=== PATIENT | female | born 1965 | race Caucasian/White ===

== ENCOUNTER 2016-04-29 20:31 | Emergency (ER) | payer MEDICAID, OTHER ==
[~2016-04-29] VITALS: Wt 100.0 kg
[~2016-04-29 20:31] MED LIST: ALBU8.5H3 INH; AZIT250T94 PO; HYDR-906 PO; IBUP-1542 PO; NAPR-260 PO; PRED20TA PO
[2016-04-29] MEDS ORDERED: AZIT250T94 PO (23:04)
[2016-04-29] MEDS ORDERED: CETI10CA PO (23:04)
[2016-04-29] MEDS ORDERED: BENZ100C70 PO (23:04)
--- NOTE | 2016-04-29 23:10 | ERD ---
ER Documentation Chief Complaint Date/Time DATE: 04/29/16 TIME: 23:05 Chief Complaint pt. states bronchitis and sore throat HPI Patient is a 50-year-old female who presents to the emergency department with a cough 1 week and a sore throat. Patient states her cough is productive in nature with yellow phlegm production. Patient states that her cough is worse at night. Patient denies taking any medication. Patient also states that her throat hurts. Patient denies any drooling, trismus or hyperextension of her neck. Patient denies any fevers however she does report some chills. Patient reports frequent clear rhinorrhea. Patient denies any body aches, ear pain, abdominal pain, nausea, vomiting. Patient denies any chest pain, shortness breath, arm pain, jaw pain or diaphoresis. She denies receiving the flu vaccine this year. 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 ROS All systems reviewed and are negative except as per history of present illness. Medications Home Meds Active Scripts Azithromycin* (Zithromax*) 250 Mg Tablet, 250 MG PO .ZPACK DIRECTED, #6 TAB TAKE 500 MG (2 TABS) THE FIRST DAY THEN 250 MG (1 TAB) DAYS 2-5 Prov:SANTA ADLER PA-C 04/29/16 Benzonatate* (Tessalon Perle*) 100 Mg Capsule, 100 MG PO Q8H Y for COUGH, #20 CAP Prov:SANTA ADLER PA-C 04/29/16 Cetirizine Hcl* (Zyrtec*) 10 Mg Capsule, 10 MG PO DAILY, #20 TAB.CHEW Prov:SANTA ADLER PA-C 04/29/16 Hydrocodone/Acetaminophen ([place] 5-325 Tablet) 1 Each Tablet, 1 TAB PO Q6H Y for SEVERE PAIN LEVEL 7-10, #20 TAB Prov:SUNG BECERRA NP 01/29/16 Ibuprofen* (Motrin*) 600 Mg Tab, 600 MG PO Q6, #30 TAB Prov:YAMILET WEEMS PA-C 01/26/16 Naproxen* (Naprosyn*) 500 Mg Tablet, 500 MG PO BID Y for PAIN AND/OR INFLAMMATION, #30 TAB Prov:TAD RODRIGUEZ PA-C 01/25/16 Prednisone* (Prednisone*) 20 Mg Tab, 60 MG PO DAILY for 5 Days, TAB Prov:DEEPTHI MARQUEZJason BHATIA 01/17/16 Albuterol Sulfate* (Proair HFA*) 8.5 Gm Hfa.aer.ad, 2 PUFF INH Q4, #1 INHALER Prov:LUIS MARQUEZSADAFShelly SernaJason DO 01/17/16 Azithromycin* (Zithromax*) 250 Mg Tablet, 250 MG PO .ZPACK DIRECTED, #6 TAB TAKE 500 MG (2 TABS) THE FIRST DAY THEN 250 MG (1 TAB) DAYS 2-5 Prov:DEEPTHI MARQUEZJason BHATIA 01/17/16 Allergies Allergies: Coded Allergies: No Known Allergy (Unverified , 01/17/16) PMhx/Soc History of Surgery: No Anesthesia Reaction: No Hx Neurological Disorder: No Hx Respiratory Disorders: No Hx Cardiac Disorders: No Hx Psychiatric Problems: No Hx Miscellaneous Medical Probl: No Hx Alcohol Use: No Hx Substance Use: No Hx Tobacco Use: No Physical Exam Vitals Vital Signs Date Time Temp Pulse Resp B/P Pulse Ox O2 Delivery O2 Flow Rate FiO2 04/29/16 20:38 98.3 66 20 119/56 97 Physical Exam GENERAL: Well-developed, well-nourished female. Appears in no acute distress. Speaking in full sentences HEAD: Normocephalic, atraumatic. No deformities or ecchymosis. EYE: Pupils equal, round, and reactive to light. EOMs intact. No conjunctival erythema. No eye discharge. ENT: External ear without any masses or tenderness. Auditory canals clear bilaterally. TM visualized bilaterally, non-erythematous, non-bulging. Nasal mucosa pink with no discharge. Oropharynx is pink without any tonsillar erythema or exudates. No uvula deviation. No kissing tonsils. Nontender to palpation of bilateral mastoid processes. Nontender palpation of the frontal and maxillary sinuses bilaterally. NECK: Supple. No meningismus. Normal ROM of the neck. LUNG: Clear to auscultation bilaterally. No rhonchi, wheezing, rales or coarse breath sounds. HEART: Regular rate and rhythm. No murmurs, rubs or gallops. BACK: No midline tenderness. EXTREMITES: Equal pulses bilaterally. No peripheral clubbing, cyanosis or edema. No unilateral leg swelling. NEUROLOGIC: Alert and oriented to person, place and time. Moving all four extremities. 5/5 strength in all extremities. Normal speech. Steady gait. SKIN: Normal color. Warm and dry. No rashes or lesions. Procedures/MDM MEDICAL DECISION MAKING: This is a 50-year-old female who presents with a cough and sore throat 1 week.. Vital signs were reviewed. Patient was afebrile. Patient was not hypoxic. ENT exam was normal. Exam was normal. Given these findings, the patients presentation is most consistent with viral URI versus acute bronchitis. I have a much lower clinical concern for bacterial infections including pneumonia, meningitis, sinusitis, otitis externa, acute otitis media, strep pharyngitis, epiglottitis or peritonsillar abscess. PRESCRIPTIONS: Z-Wong, Tessalon Perles, Zyrtec DISCHARGE: At this time, patient is stable for discharge and outpatient management. Supportive therapies such as OTC throat lozenges, salt water gurgles, popsicles and jello discussed. I have instructed the patient to follow-up with his/her primary care physician in 1-2 days. I have instructed the patient to promptly return to the ER for any new or worsening symptoms including increased pain, swelling, fever, nausea, vomiting, weakness or difficulty breathing. The patient and/or family expressed understanding of and agreement with this plan. All questions were answered. Home care instructions were provided. Departure Diagnosis: Primary Impression: Bronchitis Condition: Stable Patient Instructions: Acute Bronchitis Additional Instructions: Call your primary care doctor TOMORROW for an appointment during the next 1-2 days.See the doctor sooner or return here if your condition worsens before your appointment time. SANTA ADLER PA-C Apr 29, 2016 23:10
[2016-04-29 23:30] VITALS: BP 120/59; PULSE 75; RESP 20; TEMP 98.7
== END 2016-04-29 23:36 | disposition home or self-care (01) ==
LOC: FTE 20:31
DX: J20.9 Acute bronchitis, unspecified (principal)
CPT/HCPCS: 99284

== ENCOUNTER 2016-06-05 15:52 | Emergency (ER) | payer MEDICAID ==
[~2016-06-05] VITALS: Wt 71.0 kg
[~2016-06-05 15:52] MED LIST changes: +BENZ100C70 PO; +CETI10CA PO
--- NOTE | 2016-06-05 16:20 | ERD ---
ER Documentation Chief Complaint Date/Time DATE: 06/05/16 TIME: 16:10 Chief Complaint SORE THROAT, EAR PAIN, GENERAL BODY PAIN X 3 WEEKS HPI 50-year-old female with a history of bronchitis presents to the emergency department complaining of sore throat, cough, ear pain, body aches, and low- grade fever. She states the symptoms have been intermittent over the last month. Patient states that she has been able to control her fever with Tylenol at home but continues to cough. She reports multiple sick contacts at home with similar symptoms. Patient denies any history of diabetes, asthma, COPD and denies smoking. Patient denies headache, dizziness, abdominal pain, nausea , vomiting, diarrhea, dysuria. ROS All systems reviewed and are negative except as per history of present illness. Medications Home Meds Active Scripts Azithromycin* (Zithromax*) 250 Mg Tablet, 250 MG PO .ZPACK DIRECTED, #6 TAB TAKE 500 MG (2 TABS) THE FIRST DAY THEN 250 MG (1 TAB) DAYS 2-5 Prov:SANTA ADLER PA-C 04/29/16 Benzonatate* (Tessalon Perle*) 100 Mg Capsule, 100 MG PO Q8H Y for COUGH, #20 CAP Prov:SANTA ADLER PA-C 04/29/16 Cetirizine Hcl* (Zyrtec*) 10 Mg Capsule, 10 MG PO DAILY, #20 TAB.CHEW Prov:SANTA ADLER PA-C 04/29/16 Hydrocodone/Acetaminophen ([place] 5-325 Tablet) 1 Each Tablet, 1 TAB PO Q6H Y for SEVERE PAIN LEVEL 7-10, #20 TAB Prov:SUNG BECERRA NP 01/29/16 Ibuprofen* (Motrin*) 600 Mg Tab, 600 MG PO Q6, #30 TAB Prov:YAMILET WEEMS PA-C 01/26/16 Naproxen* (Naprosyn*) 500 Mg Tablet, 500 MG PO BID Y for PAIN AND/OR INFLAMMATION, #30 TAB Prov:TAD RODRIGUEZC 01/25/16 Prednisone* (Prednisone*) 20 Mg Tab, 60 MG PO DAILY for 5 Days, TAB Prov:DEEPTHI MARQUEZ DO 12/2/16 Albuterol Sulfate* (Proair HFA*) 8.5 Gm Hfa.aer.ad, 2 PUFF INH Q4, #1 INHALER Prov:DEEPTHI MARQUEZJason DO 01/17/16 Azithromycin* (Zithromax*) 250 Mg Tablet, 250 MG PO .ZPACK DIRECTED, #6 TAB TAKE 500 MG (2 TABS) THE FIRST DAY THEN 250 MG (1 TAB) DAYS 2-5 Prov:DEEPTHI MARQUEZJason DO 01/17/16 Allergies Allergies: Coded Allergies: No Known Allergy (Unverified , 01/17/16) PMhx/Soc History of Surgery: No Anesthesia Reaction: No Hx Neurological Disorder: No Hx Respiratory Disorders: No Hx Cardiac Disorders: No Hx Psychiatric Problems: No Hx Miscellaneous Medical Probl: No Hx Alcohol Use: No Hx Substance Use: No Hx Tobacco Use: No Physical Exam Vitals Vital Signs Date Time Temp Pulse Resp B/P Pulse Ox O2 Delivery O2 Flow Rate FiO2 06/05/16 15:55 99.5 79 18 118/69 99 Physical Exam Const: Well-developed, well-nourished, no acute distress Head: Atraumatic Eyes: Normal Conjunctiva ENT: Normal External Ears, Nose and Mouth. Tympanic membranes nonbulging non -erythematous bilaterally. Oropharynx clear without evidence of tonsillar erythema or swelling bilaterally Neck: Full range of motion..~ No meningismus. Resp: Actively coughing during exam. Clear to auscultation bilaterally, no wheezes, rhonchi, rales Cardio: Regular rate and rhythm, no murmurs Abd: Soft, non tender, non distended. Normal bowel sounds Skin: No petechiae or rashes Back: No midline or flank tenderness Ext: No cyanosis, or edema Neur: Awake and alert Psych: Normal Mood and Affect Procedures/MDM Patient seen and evaluated and flu track today. This is an otherwise healthy 50-year-old female who reports a history of bronchitis who presents with coughing, sore throat, body aches and low-grade fever intermittently over the past month. Patient is well-hydrated and nontoxic in appearance. Patient reports multiple sick contacts at home. Patient was afebrile upon arrival, normotensive, non-tachycardic, and non- hypoxic. Patient history and physical exam consistent with bronchitis. The patient does not exhibit any clinical signs or symptoms concerning for serious bacterial infection or systemic illness. Based on history and clinical exam findings the patient does not appear to have evidence of pneumonia, strep pharyngitis, urinary tract infection, bacteremia, sepsis, or meningitis. For these reasons I do not believe it is necessary to obtain laboratory testing or diagnostic imaging. I believe it would be appropriate for symptom control, and close outpatient primary care follow-up. Based on patient's history of present illness and physical examination the decision was made to discharge. There is no evidence of life threatening injuries or illnesses at this time. Patient resting in no distress, stable vital signs, reports feeling safe for discharge with outpatient follow up with PMD in 1-2 days. Patient given return precautions. Departure Diagnosis: Primary Impression: Sore throat Additional Impressions: Cough Body aches Ear pain Laterality: left Qualified Code: H92.02 - Ear pain, left TRUJILLO,BERRY Scott PA-C Jun 05, 2016 16:20
[2016-06-05] MEDS ORDERED: D-ME473S2 PO (16:21)
[2016-06-05] MEDS ORDERED: ALBU8.5H3 INH (16:21)
[2016-06-05] MEDS ORDERED: AZIT250T94 PO (16:21)
== END 2016-06-05 16:20 | disposition home or self-care (01) ==
LOC: E/R 15:52
DX: J02.9 Acute pharyngitis, unspecified (principal); R05 Cough; H92.02 Otalgia, left ear
CPT/HCPCS: 99284

== ENCOUNTER 2016-11-24 13:58 | Emergency (ER) | payer MEDICAID ==
[~2016-11-24] VITALS: Ht 157.5 cm; Wt 83.0 kg
[~2016-11-24 13:58] MED LIST changes: +D-ME473S2 PO
[2016-11-24 14:04] VITALS: Ht 157.5 cm; Wt 83.0 kg
[2016-11-24] MEDS ORDERED: CETI10CA PO (15:49)
[2016-11-24] MEDS ORDERED: D-ME473S2 PO (15:50)
--- NOTE | 2016-11-24 15:57 | ERD ---
ER Documentation Chief Complaint Date/Time DATE: 11/24/16 TIME: 15:53 Chief Complaint cough x 4 days HPI This is a 51-year-old female who presents to the emergency department today for medication refill. Patient states she has had itching ears, runny nose, itchy throat and a cough. States that she thinks that the weather change has caused an increase in her symptoms. States that she has taken promethazine DM and Zyrtec in the past with good results. Denies any fevers or chills. ROS All systems reviewed and are negative except as per history of present illness. Medications Home Meds Active Scripts Dextromethorphan Hb-Promethazine Hcl* (Promethazine DM* Syrup) 473 Ml Syrup, 5 ML PO Q6 Y for COUGH for 5 Days, ML Prov:NICOLE GONZALES PA-C 11/24/16 Cetirizine Hcl* (Zyrtec*) 10 Mg Capsule, 10 MG PO DAILY, #30 TAB.CHEW Prov:NICOLE GONZALES PA-C 11/24/16 Dextromethorphan Hb-Promethazine Hcl* (Promethazine DM* Syrup) 473 Ml Syrup, 5 ML PO Q6 Y for COUGH for 7 Days, ML Prov:BERRY TRUJILLO PA-C 06/05/16 Albuterol Sulfate* (Proair HFA*) 8.5 Gm Hfa.aer.ad, 2 PUFF INH Q4, #1 INHALER Prov:BERRY TRUJILLO PA-C 06/05/16 Azithromycin* (Zithromax*) 250 Mg Tablet, 250 MG PO .ZPAMAJO DIRECTED, #6 TAB TAKE 500 MG (2 TABS) THE FIRST DAY THEN 250 MG (1 TAB) DAYS 2-5 Prov:BERRY TRUJILLO PA-C 06/05/16 Azithromycin* (Zithromax*) 250 Mg Tablet, 250 MG PO .ZPACK DIRECTED, #6 TAB TAKE 500 MG (2 TABS) THE FIRST DAY THEN 250 MG (1 TAB) DAYS 2-5 Prov:SANTA ADLER PA-C 04/29/16 Benzonatate* (Tessalon Perle*) 100 Mg Capsule, 100 MG PO Q8H Y for COUGH, #20 CAP Prov:SANTA ADLER PA-C 04/29/16 Cetirizine Hcl* (Zyrtec*) 10 Mg Capsule, 10 MG PO DAILY, #20 TAB.CHEW Prov:SANTA ADLER PA-C 04/29/16 Hydrocodone/Acetaminophen ([place] 5-325 Tablet) 1 Each Tablet, 1 TAB PO Q6H Y for SEVERE PAIN LEVEL 7-10, #20 TAB Prov:SUNG BECERRA NP 01/29/16 Ibuprofen* (Motrin*) 600 Mg Tab, 600 MG PO Q6, #30 TAB Prov:YAMILET WEEMS PA-C 01/26/16 Naproxen* (Naprosyn*) 500 Mg Tablet, 500 MG PO BID Y for PAIN AND/OR INFLAMMATION, #30 TAB Prov:TAD RODRIGUEZ PA-C 01/25/16 Prednisone* (Prednisone*) 20 Mg Tab, 60 MG PO DAILY for 5 Days, TAB Prov:DEEPTHI MARQUEZ DO 01/17/16 Albuterol Sulfate* (Proair HFA*) 8.5 Gm Hfa.aer.ad, 2 PUFF INH Q4, #1 INHALER Prov:DEEPTHI MARQUEZ DO 01/17/16 Azithromycin* (Zithromax*) 250 Mg Tablet, 250 MG PO .ZPACK DIRECTED, #6 TAB TAKE 500 MG (2 TABS) THE FIRST DAY THEN 250 MG (1 TAB) DAYS 2-5 Prov:DEEPTHI MARQUEZ DO 01/17/16 Allergies Allergies: Coded Allergies: No Known Allergy (Unverified , 01/17/16) PMhx/Soc History of Surgery: No Anesthesia Reaction: No Hx Neurological Disorder: No Hx Respiratory Disorders: No Hx Cardiac Disorders: No Hx Psychiatric Problems: No Hx Miscellaneous Medical Probl: No Hx Alcohol Use: No Hx Substance Use: No Hx Tobacco Use: No Smoking Status: Never smoker Physical Exam Vitals Vital Signs Date Time Temp Pulse Resp B/P Pulse Ox O2 Delivery O2 Flow Rate FiO2 11/24/16 14:04 98.1 59 18 145/71 99 Physical Exam Const: NAD, pleasant Head: Atraumatic Eyes: Normal Conjunctiva ENT: Ears TM normal, nose no drainage. Throat No erythema no exudate no vesicles Neck: Full range of motion..~ No meningismus. Resp: Clear to auscultation bilaterally Cardio: Regular rate and rhythm, no murmurs Abd: Soft, non tender, non distended. Normal bowel sounds Skin: No petechiae or rashes Back: No midline or flank tenderness Ext: No cyanosis, or edema Neur: Awake and alert Psych: Normal Mood and Affect Procedures/MDM This is a 51-year-old female who presents the emergency department today for medication refill. Patient reported URI symptoms and allergy related symptoms. She is afebrile here in the emergency department. Her oxygen saturation is 99 %. Do not feel she requires further workup or imaging at this time. Patient symptoms at this time was consistent with URI likely viral versus allergic rhinitis. Low suspicion for pneumonia, PE, abscess, pleural effusion, pneumothorax, strep pharyngitis, peritonsillar abscess, retropharyngeal abscess , otitis media, otitis externa, mastoiditis. Patient was given a prescription for Promethazine DM and Zyrtec. At this time the patient is stable for discharge and outpatient management. Patient should follow up with their PCP in the next 1-2 days. They may return to the emergency department sooner for any persistent or worsening of symptoms. Patient understood and agreed with the plan. Departure Diagnosis: Primary Impression: URI (upper respiratory infection) URI type: unspecified URI Qualified Code: J06.9 - Upper respiratory tract infection, unspecified type Condition: Fair Patient Instructions: Preventing Common Respiratory Infections Referrals: YOUR PCP Additional Instructions: Call your primary care doctor TOMORROW for an appointment during the next 1-2 days.See the doctor sooner or return here if your condition worsens before your appointment time. Take medications as prescribed NICOLE GONZALES PA-C Nov 24, 2016 15:57
== END 2016-11-24 16:01 | disposition home or self-care (01) ==
LOC: FTE 13:58
DX: J06.9 Acute upper respiratory infection, unspecified (principal)
CPT/HCPCS: 99283

== ENCOUNTER 2017-01-22 16:05 | Emergency (ER) | payer MEDICAID ==
[~2017-01-22] VITALS: Ht 165.1 cm; Wt 98.1 kg
[2017-01-22 16:12] VITALS: Ht 165.1 cm; Wt 98.1 kg
[2017-01-22] MEDS ORDERED: ALBUTEROL 0.083% (NEB) 2.5 MG/3 ML AMP NEB STA (17:22)
[2017-01-22] MEDS ORDERED: DEXAMETHASONE 10 MG/ML 1 ML INJ IM STA (17:22)
[2017-01-22] MEDS ORDERED: LEVALBUTEROL (NEB) 1.25 MG/0.5 ML AMP INH STA (17:22)
[2017-01-22] MEDS ORDERED: ACETAMINOPHEN 500 MG TAB PO STA (17:22)
--- NOTE | 2017-01-22 17:58 | RADRPT ---
PROCEDURE: Chest x-ray CLINICAL INDICATION: Asthma exacerbation TECHNIQUE: Chest single view COMPARISON: None FINDINGS: The heart is normal in size. The pulmonary vessels are normal in caliber. The lungs are clear. Th e costophrenic angles are sharp. The visualized bony thorax is unremarkable. IMPRESSION: No acute cardiopulmonary disease. RPTAT: HH .Sg Davalos MD, Date Time Electronically viewed and signed by .Sg Davalos MD, MD on 01/22/2017 17:58 .W/
[2017-01-22] MEDS ORDERED: PRED20TA PO (18:46)
[2017-01-22] MEDS ORDERED: D-ME473S2 PO (18:48)
--- NOTE | 2017-01-22 20:38 | ERD ---
ER Documentation Chief Complaint Chief Complaint Complains of cough and fever Hx of Bronchitis HPI This is a 51-year-old female, with past medical history for asthma, presenting to emergency department for cough, wheezing, headache and sore throat 6 days. Patient states she has productive cough with yellow mucus. No patient has audible wheezing. Patient states she has not been using her inhaler at home. Patient had similar symptoms 2 months ago and states she was given cough syrup and this improved her symptoms dramatically. No shortness breath or difficulty breathing. No labored breathing. No chest pain or chest pressure. No difficulty swallowing or drooling. ROS All systems reviewed and are negative except as per history of present illness. Medications Home Meds Active Scripts Dextromethorphan Hb-Promethazine Hcl* (Promethazine DM* Syrup) 473 Ml Syrup, 5 ML PO Q6 Y for COUGH for 7 Days, #120 ML Prov:MAKEDA SULLIVAN NP 01/22/17 Prednisone* (Prednisone*) 20 Mg Tab, 40 MG PO DAILY for 4 Days, TAB Prov:MAKEDA SULLIVAN NP 01/22/17 Dextromethorphan Hb-Promethazine Hcl* (Promethazine DM* Syrup) 473 Ml Syrup, 5 ML PO Q6 Y for COUGH for 5 Days, ML Prov:NICOLE GONZALES PA-C 11/24/16 Cetirizine Hcl* (Zyrtec*) 10 Mg Capsule, 10 MG PO DAILY, #30 TAB.CHEW Prov:NICOLE GONZALES PA-C 11/24/16 Dextromethorphan Hb-Promethazine Hcl* (Promethazine DM* Syrup) 473 Ml Syrup, 5 ML PO Q6 Y for COUGH for 7 Days, ML Prov:BERRY TRUJILLO PA-C 06/05/16 Albuterol Sulfate* (Proair HFA*) 8.5 Gm Hfa.aer.ad, 2 PUFF INH Q4, #1 INHALER Prov:BERRY TRUJILLO PA-C 06/05/16 Azithromycin* (Zithromax*) 250 Mg Tablet, 250 MG PO .Luis EnriquePAMAJO DIRECTED, #6 TAB TAKE 500 MG (2 TABS) THE FIRST DAY THEN 250 MG (1 TAB) DAYS 2-5 Prov:BERRY TRUJILLO PA-C 06/05/16 Azithromycin* (Zithromax*) 250 Mg Tablet, 250 MG PO .ZPAMAJO DIRECTED, #6 TAB TAKE 500 MG (2 TABS) THE FIRST DAY THEN 250 MG (1 TAB) DAYS 2-5 Prov:SANTA ADLERC 04/29/16 Benzonatate* (Tessalon Perle*) 100 Mg Capsule, 100 MG PO Q8H Y for COUGH, #20 CAP Prov:SANTA ADLERC 04/29/16 Cetirizine Hcl* (Zyrtec*) 10 Mg Capsule, 10 MG PO DAILY, #20 TAB.CHEW Prov:SANTA ADLER PA-C 04/29/16 Hydrocodone/Acetaminophen ([place] 5-325 Tablet) 1 Each Tablet, 1 TAB PO Q6H Y for SEVERE PAIN LEVEL 7-10, #20 TAB Prov:SUNG BECERRA NP 01/29/16 Ibuprofen* (Motrin*) 600 Mg Tab, 600 MG PO Q6, #30 TAB Prov:YAMILET WEEMSC 01/26/16 Naproxen* (Naprosyn*) 500 Mg Tablet, 500 MG PO BID Y for PAIN AND/OR INFLAMMATION, #30 TAB Prov:TAD RODRIGUEZC 01/25/16 Prednisone* (Prednisone*) 20 Mg Tab, 60 MG PO DAILY for 5 Days, TAB Prov:DEEPTHI MARQUEZ DO 01/17/16 Albuterol Sulfate* (Proair HFA*) 8.5 Gm Hfa.aer.ad, 2 PUFF INH Q4, #1 INHALER Prov:DEEPTHI MARQUEZ DO 01/17/16 Azithromycin* (Zithromax*) 250 Mg Tablet, 250 MG PO .PILAR DIRECTED, #6 TAB TAKE 500 MG (2 TABS) THE FIRST DAY THEN 250 MG (1 TAB) DAYS 2-5 Prov:KAMALJIT MARQUEZSTSADAFS AJason DO 01/17/16 Allergies Allergies: Coded Allergies: No Known Allergy (Unverified , 01/22/17) PMhx/Soc History of Surgery: No Anesthesia Reaction: No Hx Neurological Disorder: No Hx Respiratory Disorders: Yes (Asthma) Hx Cardiac Disorders: No Hx Psychiatric Problems: No Hx Miscellaneous Medical Probl: No Hx Alcohol Use: No Hx Substance Use: No Hx Tobacco Use: No Smoking Status: Never smoker Physical Exam Vitals Vital Signs Date Time Temp Pulse Resp B/P Pulse Ox O2 Delivery O2 Flow Rate FiO2 01/22/17 18:00 68 20 98 21 01/22/17 16:12 99.2 68 20 155/75 98 Physical Exam Const: No acute distress, alert Head: Atraumatic Eyes: Normal Conjunctiva ENT: Normal External Ears, Nose and Mouth. Neck: Full range of motion..~ No meningismus. Resp: Wheezing to auscultation bilaterally to upper lobes posteriorly. No stridor. No intercostal retractions or labored breathing. Patient is talking in complete sentences. Cardio: Regular rate and rhythm, no murmurs Abd: Soft, non tender, non distended. Normal bowel sounds Skin: No petechiae or rashes Back: No midline or flank tenderness Ext: No cyanosis, or edema Neur: Awake and alert Psych: Normal Mood and Affect Results 24 hrs Current Medications Medications (Trade) Dose Ordered Sig/Rashaad Route PRN Reason Start Time Stop Time Status Last Admin Dose Admin Albuterol (Proventil 0.083% (Neb)) 5 mg ONCE STAT NEB 01/22/17 17:22 01/22/17 17:26 DC 01/22/17 17:58 Dexamethasone (Decadron) 10 mg ONCE STAT IM 01/22/17 17:22 01/22/17 17:26 DC 01/22/17 17:35 Levalbuterol (Xopenex Neb) 1.25 mg ONCE STAT INH 01/22/17 17:22 01/22/17 17:26 DC Acetaminophen (Tylenol Tab) 500 mg ONCE STAT PO 01/22/17 17:22 01/22/17 17:26 DC 01/22/17 17:35 Procedures/MDM Patient: SHARRON ARCE : 1965 Age: 51 Sex: F MR #: [id number] DOS: 01/22/17 1722 Ordering MD: MAKEDA ALAN NP Location: [facility] Room/Bed: PROCEDURE: Chest x-ray CLINICAL INDICATION: Asthma exacerbation TECHNIQUE: Chest single view COMPARISON: None FINDINGS: The heart is normal in size. The pulmonary vessels are normal in caliber. The lungs are clear. The costophrenic angles are sharp. The visualized bony thorax is unremarkable. IMPRESSION: No acute cardiopulmonary disease. MDM: This is a 51-year-old female presenting to emergency department for cough, wheezing, headache and sore throat 6 days. Patient has audible wheezing on physical exam. Patient given albuterol nebulizer treatment per RT. Patient given Decadron 10 mg IM and Tylenol 500 mg p.o. chest x-ray reviewed by radiologist as no acute cardiopulmonary disease. Upon reassessment of patient, patient states she is breathing significantly better. Discussed findings with patient. Patient appears in no acute distress. Patient is nontoxic and non- hypoxic appearing. Patient is talking in complete sentences. Vital signs remained stable. Low suspicion for pneumonia, pleural effusion, pneumothorax or acute ND. Differential diagnosis includes but not limited to URI, influenza, otitis media , otitis externa, asthma exacerbation, croup, bronchitis, bronchiolitis and costochondritis. Patient is appropriate for outpatient management and will be given prescription for prednisone and promethazine DM cough syrup . Instructed patient to follow- up with primary care provider in the next 2-3 days for reassessment and additional management. Return to ED for any high fever, chest pain, difficulty breathing, shortness breath, wheezing, vomiting, diarrhea, abdominal pain or any new or worsening symptoms. Patient verbalizes understanding. All questions answered at discharge. Kyrgyz translation used during this encounter. Disclaimer: Inadvertent spelling and grammatical errors are likely due to EHR/ dictation software use and do not reflect on the overall quality of patient care. Also, please note that the electronic time recorded on this note does not necessarily reflect the actual time of the patient encounter. Departure Diagnosis: Primary Impression: URI (upper respiratory infection) URI type: unspecified viral URI Qualified Code: J06.9 - Viral upper respiratory tract infection Additional Impression: Shortness of breath Condition: Stable Patient Instructions: Uri, Viral W/ Wheezing (Adult) Referrals[facility] Usted se wells hecho un examen mdico de control que le indica que no est en cornelius condicin que requiera tratamiento urgente en el Departamento de Emergencia. Un estudio ms profundo y el tratamiento de landry condicin pueden esperar sin ningn riesgo hasta que usted sea atendida/o en el consultorio de landry mdico o cornelius cl [place]. Es responsabilidad suya arreglar cornelius james para el seguimiento del taryn. MANEJO DE CONDICIONES NO URGENTES EN EL FUTURO 1) Si usted tiene un mdico de atencin primaria: Usted debera llamar a landry mdico de atencin primaria antes de venir al departamento de emergencia. Despus de las horas de consultorio, landry doctor o landry asociado/a est disponible por telfono. El mdico o enfermero de isac en el servicio telefnico puede asesorarle por selina medio para atender el problema, o taryn contrario se puede programar cornelius james. 2) Si usted no tiene un mdico de atencin primaria: Llame al mdico o clnica de referencia que aparece abajo abdulaziz las horas de consultorio para hacer cornelius james para que le vean. CLINICAS: [facility] [phone] [facility] [phone] [facility]. [facility] [phone] [facility] [facility] [phone] [address] [facility] [place] [phone] [facility]. [phone] [address] [facility]. [facility] () Usted se wells hecho un examen mdico de control que le indica que no est en cornelius condicin que requiera tratamiento urgente en el Departamento de Emergencia. Un estudio ms profundo y el tratamiento de landry condicin pueden esperar sin ningn riesgo hasta que usted sea atendida/o en el consultorio de landry mdico o cornelius cl [place]. Es responsabilidad suya arreglar cornelius james para el seguimiento del taryn. MANEJO DE CONDICIONES NO URGENTES EN EL FUTURO 1) Si usted tiene un mdico de atencin primaria: Usted debera llamar a landry mdico de atencin primaria antes de venir al departamento de emergencia. Despus de las horas de consultorio, landry doctor o landry asociado/a est disponible por telfono. El mdico o enfermero de isac en el servicio telefnico puede asesorarle por selina medio para atender el problema, o taryn contrario se puede programar cornelius james. 2) Si usted no tiene un mdico de atencin primaria: Llame al mdico o condado institucions de referencia que aparece abajo abdulaziz las horas de consultorio para hacer cornelius james para que le vean. SI USTED NO PUEDE PAGAR PARA MERRITT UN MEDICO puede ir a: [facility] [address] [place] [address] [facility] [address] [place] [address] [facility] [address] [place] [address] [facility] [address] [place], [place] [id number] Additional Instructions: Llame al doctor MAANA y antonina cornelius JAMES PARA DENTRO DE 2-3 CHASE.Dgale a la secretaria que nosotros le instruimos hacer esta james.Avise o llame si landry condicin se empeora antes de la james. Regresa aqui si peor o no mejor. Vuelva a Ed para cualquier fiebre vasu, dolor en el pecho, dificultad para respirar, respiracin entrecortada, sibilancias, vmitos, diarrea, dolor abdominal o cualquier sntoma nuevo o empeoramiento. MAKEDA SULLIVAN NP Jan 22, 2017 20:38
== END 2017-01-22 19:08 | disposition home or self-care (01) ==
LOC: FTE 16:05
DX: J06.9 Acute upper respiratory infection, unspecified (principal); J45.901 Unspecified asthma with (acute) exacerbation
CPT/HCPCS: 71010; 94664; 96372; J1100; Z7502; Z7610

== ENCOUNTER 2017-02-13 19:07 | Emergency (ER) | END 2017-02-13 23:12 | disposition home or self-care (01) ==

== ENCOUNTER 2017-05-06 21:06 | Emergency (ER) | END 2017-05-06 21:35 | disposition home or self-care (01) ==

== ENCOUNTER 2017-05-18 18:13 | Emergency (ER) | END 2017-05-18 22:43 | disposition home or self-care (01) ==

== ENCOUNTER 2017-11-02 11:32 | Emergency (ER) | END 2017-11-02 12:55 | disposition home or self-care (01) ==

== ENCOUNTER 2018-01-12 18:13 | Emergency (ER) | END 2018-01-12 22:10 | disposition home or self-care (01) ==

== ENCOUNTER 2018-09-29 13:42 | Emergency (ER) | payer SELFPAY ==
[~2018-09-29] VITALS: Ht 149.9 cm; Wt 89.4 kg
[~2018-09-29 13:42] MED LIST changes: -ALBU8.5H3 INH; +ALBU8.5H8 INH; +AMOX1TAB9 PO; +AMOX500C2 PO; +AZIT250T PO; -AZIT250T94 PO; +BENZ-6 PO; -BENZ100C70 PO; +DICL100G37 TOP; +GUAI-227 PO; +GUAI120S25 PO; +HYDR-4011 PO; -HYDR-906 PO; +IBUP800T48 PO; +LIDO700A45 TP; -NAPR-260 PO; +NAPR-985 PO; +PROM5SYR2 PO
[2018-09-29 13:49] VITALS: BP 159/71; PULSE 66; RESP 16; Ht 149.9 cm; Wt 89.4 kg
--- NOTE | 2018-09-29 14:36 | ERD ---
ER Documentation Chief Complaint Chief Complaint ST, ABEL, bilateral ear pain x1 week HPI Patient is a 53-year-old female presents the ER for concerns of nasal congestion, headache, sore throat and ear pain for the last week. Patient denies any fevers or chills. Patient reports a mild dry cough. Patient has no chest pain, shortness of breath, bone pain, nausea vomiting or LOC. No recent travel. No sick contacts. ROS All systems reviewed and are negative except as per history of present illness. Medications Home Meds Active Scripts Ibuprofen* (Motrin*) 600 Mg Tab, 600 MG PO Q6, #30 TAB Prov:SANTA ADLER PA-C 09/29/18 Amoxicillin* (Amoxicillin*) 500 Mg Cap, 500 MG PO BID for 7 Days, CAP Prov:SANTA ADLER PA-C 09/29/18 Ibuprofen* (Motrin*) 800 Mg Tab, 800 MG PO Q6H PRN for PAIN AND OR ELEVATED TEMP, #30 TAB Prov:IAM CHANDRA 01/12/18 Guaifenesin-Dextromethorphan* (Robafen* DM) 100MG/10MG/5ML Liquid, 5 ML PO Q6H PRN for COUGH, #120 ML Prov:IAM CHANDRA 01/12/18 Albuterol Sulfate* (Proair HFA*) 8.5 Gm Hfa.aer.ad, 2 PUFF INH Q4H PRN for WHEE ZING AND SOB, #1 INHALER Prov:IAM CHANDRA 01/12/18 Prednisone* (Prednisone*) 20 Mg Tab, 40 MG PO DAILY for 4 Days, TAB Prov:IAM CHANDRA 01/12/18 Azithromycin* (Zithromax*) 250 Mg Tablet, 250 MG PO .ZPACK DIRECTED, #6 TAB TAKE 500 MG (2 TABS) THE FIRST DAY THEN 250 MG (1 TAB) DAYS 2-5 Prov:IAM CHANDRA 01/12/18 Amoxicillin/Potassium Clav (Amox-Clav 500-125 mg Tablet) 500-125 mg Tab, 1 TAB PO BID for 7 Days, TAB Prov:IAM CHANDRA 01/12/18 Diclofenac Sodium* (Voltaren* Gel) 1% -100 Gm Gel, 4 GM TOP QID, #1 TUB Prov:TAD RODRIGUEZ PA-C 11/02/17 Lidocaine (Lidocaine) 1 Each Adh..patch, 1 EACH TP BID, #14 Prov:TAD RODRIGUEZ PA-C 11/02/17 Naproxen* (Naprosyn*) 500 Mg Tablet, 500 MG PO BID PRN for PAIN AND/OR INFLAMMA TION, #30 TAB Prov:TAD RODRIGUEZ PA-C 11/02/17 Ibuprofen* (Motrin*) 600 Mg Tab, 600 MG PO Q6, #20 TAB Prov:LUIS MURILLO PA-C 05/18/17 Dextromethorphan Hb-Promethazine Hcl* (Promethazine DM* Syrup) 473 Ml Syrup, 5 ML PO Q6 PRN for COUGH, #120 ML Prov:LUIS MURILLO PA-C 05/18/17 Ibuprofen* (Motrin*) 600 Mg Tab, 600 MG PO Q6H PRN for PAIN AND OR ELEVATED TEMP, #30 TAB Prov:SUNG BECERRA NP 05/06/17 Albuterol Sulfate* (Proair HFA*) 8.5 Gm Hfa.aer.ad, 2 PUFF INH Q4H PRN for WHEEZING AND SOB, #1 INHALER Prov:SUNG BECERRA NP 05/06/17 Cetirizine Hcl* (Zyrtec*) 10 Mg Capsule, 10 MG PO DAILY, #30 TAB.CHEW Prov:SUNG BECERRA NP 05/06/17 Bkkvjzerxrz-U-Iebxxxnxsx Hb* (Guaifenesin* DM Syrup) 120 Ml Syrup, 10 ML PO Q4H PRN for COUGH, #120 ML Prov:SUNG BECERRA NP 05/06/17 Azithromycin* (Zithromax*) 250 Mg Tablet, 250 MG PO .PILAR DIRECTED, #6 TAB TAKE 500 MG (2 TABS) THE FIRST DAY THEN 250 MG (1 TAB) DAYS 2-5 Prov:SUNG BECERRA NP 05/06/17 Promethazine HCl/Codeine (Prometh-Codein 6.25-10 mg/5 ml) 5 Ml Syrup, 5 ML PO TID PRN for COUGH, #120 ML Prov:YESENIA BORDEN MD 02/13/17 Albuterol Sulfate* (Proair HFA*) 8.5 Gm Hfa.aer.ad, 2 PUFF INH Q4H WHILE AWAKE PRN for WHEEZING AND SOB, #1 INHALER Prov:YESENIA BORDEN MD 02/13/17 Prednisone* (Prednisone*) 20 Mg Tab, 20 MG PO DAILY for 5 Days, TAB Prov:YESENIA BORDEN MD 02/13/17 Azithromycin* (Zithromax*) 250 Mg Tablet, 250 MG PO .ZPACK DIRECTED, #6 TAB TAKE 500 MG (2 TABS) THE FIRST DAY THEN 250 MG (1 TAB) DAYS 2-5 Prov:YESENIA BORDEN MD 02/13/17 Dextromethorphan Hb-Promethazine Hcl* (Promethazine DM* Syrup) 473 Ml Syrup, 5 ML PO Q6 PRN for COUGH for 7 Days, #120 ML Prov:MAKEDA SULLIVAN NP 01/22/17 Prednisone* (Prednisone*) 20 Mg Tab, 40 MG PO DAILY for 4 Days, TAB Prov:MAKEDA SULLIVAN NP 01/22/17 Dextromethorphan Hb-Promethazine Hcl* (Promethazine DM* Syrup) 473 Ml Syrup, 5 ML PO Q6 PRN for COUGH for 5 Days, ML Prov:NICOLE GONZALES PA-C 11/24/16 Cetirizine Hcl* (Zyrtec*) 10 Mg Capsule, 10 MG PO DAILY, #30 TAB.CHEW Prov:NICOLE GONZALES PA-C 11/24/16 Dextromethorphan Hb-Promethazine Hcl* (Promethazine DM* Syrup) 473 Ml Syrup, 5 ML PO Q6 PRN for COUGH for 7 Days, ML Prov:BERRY TRUJILLO PA-C 06/05/16 Albuterol Sulfate* (Proair HFA*) 8.5 Gm Hfa.aer.ad, 2 PUFF INH Q4, #1 INHALER Prov:BERRY TRUJILLO PA-C 06/05/16 Azithromycin* (Zithromax*) 250 Mg Tablet, 250 MG PO .ZPACK DIRECTED, #6 TAB TAKE 500 MG (2 TABS) THE FIRST DAY THEN 250 MG (1 TAB) DAYS 2-5 Prov:BERRY TRUJILLOC 06/05/16 Azithromycin* (Zithromax*) 250 Mg Tablet, 250 MG PO .ZPACK DIRECTED, #6 TAB TAKE 500 MG (2 TABS) THE FIRST DAY THEN 250 MG (1 TAB) DAYS 2-5 Prov:SANTA ADLER-C 04/29/16 Benzonatate* (Tessalon Perle*) 100 Mg Capsule, 100 MG PO Q8H PRN for COUGH, #20 CAP Prov:SANTA ADLERC 04/29/16 Cetirizine Hcl* (Zyrtec*) 10 Mg Capsule, 10 MG PO DAILY, #20 TAB.CHEW Prov:SANTA ADLERC 04/29/16 Hydrocodone/Acetaminophen ([place] 5-325 Tablet) 1 Each Tablet, 1 TAB PO Q6H PRN for SEVERE PAIN LEVEL 7-10, #20 TAB Prov:SUNG BECERRA NP 01/29/16 Ibuprofen* (Motrin*) 600 Mg Tab, 600 MG PO Q6, #30 TAB Prov:YAMILET WEEMSC 01/26/16 Naproxen* (Naprosyn*) 500 Mg Tablet, 500 MG PO BID PRN for PAIN AND/OR INFLAMMATION, #30 TAB Prov:TAD RODRIGUEZC 01/25/16 Prednisone* (Prednisone*) 20 Mg Tab, 60 MG PO DAILY for 5 Days, TAB Prov:DEEPTHI MARQUEZ DO 01/17/16 Albuterol Sulfate* (Proair HFA*) 8.5 Gm Hfa.aer.ad, 2 PUFF INH Q4, #1 INHALER Prov:DEEPTHI MARQUEZ DO 01/17/16 Azithromycin* (Zithromax*) 250 Mg Tablet, 250 MG PO .ZPACK DIRECTED, #6 TAB TAKE 500 MG (2 TABS) THE FIRST DAY THEN 250 MG (1 TAB) DAYS 2-5 Prov:DEEPTHI MARQUEZ DO 01/17/16 Allergies Allergies: Coded Allergies: No Known Allergy (Unverified , 11/02/17) PMhx/Soc History of Surgery: No Anesthesia Reaction: No Hx Neurological Disorder: No Hx Respiratory Disorders: Yes (Asthma) Hx Cardiac Disorders: No Hx Psychiatric Problems: No Hx Miscellaneous Medical Probl: No Hx Alcohol Use: Yes (OCASSIONAL) Hx Substance Use: No Hx Tobacco Use: No FmHx Family History: No diabetes Physical Exam Vitals Vital Signs Date Temp Pulse Resp B/P (MAP) Pulse Ox O2 O2 Flow FiO2 Time Delivery Rate 09/29/18 98.5 66 16 159/71 98 13:49 (100) Physical Exam GENERAL: Well-developed, well-nourished female. Appears in no acute distress. HEAD: Normocephalic, atraumatic. No deformities or ecchymosis. EYE: Pupils equal, round, and reactive to light. EOMs intact. No conjunctival erythema. No eye discharge. ENT: External ear without any masses or tenderness. Auditory canals clear bilaterally. TM visualized bilaterally, erythematous, non-bulging. No mastoid tenderness noted bilaterally. Nasal mucosa pink with no discharge. Oropharynx is pink without any tonsillar erythema or exudates. No uvula deviation. No kissing tonsils. Tender to palpation of bilateral maxillary and frontal sinuses. NECK: Supple. No meningismus. Normal ROM of the neck. LUNG: Clear to auscultation bilaterally. No rhonchi, wheezing, rales or coarse breath sounds. HEART: Regular rate and rhythm. No murmurs, rubs or gallops. BACK: No midline tenderness. EXTREMITIES: Equal pulses bilaterally. No peripheral clubbing, cyanosis or edema. No unilateral leg swelling. NEUROLOGIC: Alert and oriented to person, place and time. Moving all four extremities. 5/5 strength in all extremities. Normal speech. Steady gait. SKIN: Normal color. Warm and dry. No rashes or lesions. Procedures/MDM MEDICAL DECISION MAKING: This is a 53-year-old female who presents to the ER for concerns of sinus congestion, sinus headache, sore throat, ear pain and cough x1 week.. Vital signs were reviewed. Patient was afebrile. Patient was not hypoxic. Physical e xam findings are concerning for sinusitis and otitis media. Low suspicion for pneumonia, meningitis, sinusitis, otitis externa, mastoiditis, deep space infection, strep pharyngitis, epiglottitis or peritonsillar abscess. PRESCRIPTIONS: Ibuprofen, amoxicillin DISCHARGE: At this time, patient is stable for discharge and outpatient management. Supportive therapies such as OTC throat lozenges, salt water gurgles, popsicles and jello discussed. I have instructed the patient to follow-up with his/her primary care physician in 1-2 days. I have instructed the patient to promptly return to the ER for any new or worsening symptoms including increased pain, swelling, fever, nausea, vomiting, weakness or difficulty breathing. The patient and/or family expressed understanding of and agreement with this plan. All questions were answered. Home care instructions were provided. Disclaimer: Inadvertent spelling and grammatical errors are likely due to EHR/dictation software use and do not reflect on the overall quality of patient care. Also, please note that the electronic time recorded on this note does not necessarily reflect the actual time of the patient encounter. Departure Diagnosis: Primary Impression: Otitis media Otitis media type: unspecified Chronicity: acute Qualified Codes: H66.90 - Otitis media, unspecified, unspecified ear Additional Impression: Sinusitis Sinusitis location: unspecified location Chronicity: unspecified Qualif ied Codes: J32.9 - Chronic sinusitis, unspecified Condition: Fair Patient Instructions: Acute Sinusitis Referrals: [facility] YOU HAVE RECEIVED A MEDICAL SCREENING EXAM AND THE RESULTS INDICATE THAT YOU DO NOT HAVE A CONDITION THAT REQUIRES URGENT TREATMENT IN THE EMERGENCY DEPARTMENT. FURTHER EVALUATION AND TREATMENT OF YOUR CONDITION CAN WAIT UNTIL YOU ARE SEEN IN YOUR DOCTORS OFFICE WITHIN THE NEXT 1-2 DAYS. IT IS YOUR RESPONSIBILITY TO MAKE AN APPOINTMENT FOR [facility]- CARE. IF YOU HAVE A PRIMARY DOCTOR --you should call your primary doctor and schedule an appointment IF YOU DO NOT HAVE A PRIMARY DOCTOR YOU CAN CALL OUR PHYSICIAN REFERRAL HOTLINE AT IF YOU CAN NOT AFFORD TO SEE A PHYSICIAN YOU CAN CHOSE FROM THE FOLLOWING [facility] CL[facility]ICS [facility] [address] [facility] [address] [facility] [address] [facility] [address] [facility]. [facility] [address] [facility]. [facility]. [address] [facility]. [facility] YOU HAVE RECEIVED A MEDICAL SCREENING EXAM AND THE RESULTS INDICATE THAT YOU DO NOT HAVE A CONDITION THAT REQUIRES URGENT TREATMENT IN THE EMERGENCY DEPARTMENT. FURTHER EVALUATION AND TREATMENT OF YOUR CONDITION CAN WAIT UNTIL YOU ARE SEEN IN YOUR DOCTORS OFFICE WITHIN THE NEXT 1-2 DAYS. IT IS YOUR RESPONSIBILITY TO MAKE AN APPOINTMENT FOR FOLOW-UP CARE. IF YOU HAVE A PRIMARY DOCTOR --you should call your primary doctor and schedule and appointment IF YOU DO NOT HAVE A PRIMARY DOCTOR YOU CAN CALL OUR PHYSICIAN REFERRAL HOTLINE AT . IF YOU CAN NOT AFFORD TO SEE A PHYSICIAN YOU CAN CHOSE FROM THE FOLLOWING [facility]: [facility] [address] [place] [address] [facility] [address] [place], [place] [id number] [place] [address] [address] [place] [address] Additional Instructions: Call your primary care doctor TOMORROW for an appointment during the next 1-2 days.See the doctor sooner or return here if your condition worsens before your appointment time. SANTA ADLER PA-C Sep 29, 2018 14:36
== END 2018-09-29 14:11 | disposition home or self-care (01) ==
LOC: E/R 13:42
DX: H66.93 Otitis media, unspecified, bilateral (principal); J45.909 Unspecified asthma, uncomplicated; J32.9 Chronic sinusitis, unspecified
CPT/HCPCS: 99283